=== PATIENT | female | born 1950 ===

== ENCOUNTER → 2019-08-26 13:11 | Outpatient (CLI) | payer OTHER ==
[~2019-08-26 13:11] MED LIST: BENADRYL ALLE12.5 MG PO; COLAGENO; MELATONIN3 MG PO; MUCINEX600 MG PO; RELAFEN500 MG PO; [UNRECOGNIZED DRUG - OTHER]
== END | disposition home or self-care (01) ==
LOC: LAB 13:11
DX: J11.1 Influenza due to unidentified influenza virus with other respiratory manifestations (principal)

== ENCOUNTER 2022-10-24 10:47 | Outpatient (CLI) | payer OTHER | END 2022-10-24 10:50 | disposition home or self-care (01) | LOC: SONOGRAMA 10:47 | PROVIDERS: ATTEND Pathology Anatomic Pathology & Clinical Pathology | DX: D34 Benign neoplasm of thyroid gland (principal); E04.9 Nontoxic goiter, unspecified ==